=== PATIENT | male | born 1970 | race Hispanic/Latino ===

== ENCOUNTER 2016-12-21 01:15 | Emergency (ER) | payer MEDICARE ==
[2016-12-21 04:33] LABS: Anion Gap 22 mmol/L; Blood Urea Nitrogen 12 mg/dL (9-20); Calcium 9.1 mg/dL (8.4-10.2); Carbon Dioxide 23 mmol/L (22-30); Glucose 119 mg/dL (75-100); Potassium 3.8 mmol/L (3.6-5.0); Sodium 138 mmol/L (137-145)
[2016-12-21 04:42] LABS: Basophils % (Auto) 0.3 % (0.0-1.8); Eosinophils % (Auto) 0.1 % (0.0-4.3); Hematocrit 43.9 % (35.5-45.6); Hemoglobin 14.3 gm/dl (11.8-15.2); Mean Corpuscular HGB Conc 33 % (32-34); Mean Corpuscular Hemoglobin 30 pg (28-32); Mean Corpuscular Volume 91 fl (84-94); Platelet Count 347 K/mm3 (140-440); Red Blood Count 4.84 M/mm3 (3.65-5.03); Red Cell Distribution Width 14.8 % (13.2-15.2); White Blood Count 19.6 K/mm3 (4.5-11.0)
--- NOTE | 2016-12-21 06:23 | Emergency Department Report ---
ED Psych HPI - General Chief Complaint: Psych Stated Complaint: MH EVAL Time Seen by Provider: 12/21/16 06:17 Source: patient, RN notes reviewed Mode of arrival: Ambulatory Limitations: Other (patient is a poor historian. May also have a component of developmental delay.) - History of Present Illness Initial Comments: This is a 46-year-old male. He is previously unknown to me. Patient apparently has a past medical history of schizophrenia, may also have a component of bipolar, mental retardation. Does not have any family members with him. Patient presents to the ER indicating that he needs "help bad." The patient indicates he was recently discharged from another mental health facility (does not know the name) and is complaining of chronic hallucinations, and indicates that he wants to hang himself, shoot himself, or cut his own throat. He cannot describe exacerbating or relieving factors. The patient denies headache, neck pain, chest pain, abdominal pain or soreness of breath. He denies irritative and obstructive urinary symptoms. He reports that he is allergic to Haldol, acetaminophen. He reports that he takes Zyprexa, Depakote, and "a sleeping medication", but he cannot recall the names, doses, or pharmacy he gets them from. MD Complaint: suicidal ideation -: Gradual Associated Psychiatric Symptoms: auditory hallucinations History of same: Yes Quality: intermittent Improves With: none Worsens With: none If Self Harm: admits thoughts of, has plan - Related Data Home Medications Medication Instructions Recorded Confirmed Last Taken Unobtainable 12/21/16 12/21/16 Unknown Allergies Allergy/AdvReac Type Severity Reaction Status Date / Time acetaminophen [From Tylenol] Allergy Vomiting Verified 12/21/16 01:52 aspirin Allergy Vomiting Verified 12/21/16 01:52 diphenhydramine HCl Allergy Shortness Verified 12/21/16 01:52 [From Benadryl] of Breath haloperidol [From Haldol] Allergy Unknown Verified 12/21/16 01:52 haloperidol lactate Allergy Unknown Verified 12/21/16 01:52 [From Haldol] ED Review of Systems ROS: Stated complaint: MH EVAL Other details as noted in HPI Constitutional: denies: fever Eyes: denies: eye discharge ENT: denies: epistaxis Respiratory: denies: cough Cardiovascular: denies: chest pain Genitourinary: as per HPI Musculoskeletal: as per HPI Skin: as per HPI Neurological: as per HPI Psychiatric: as per HPI ED Past Medical Hx - Past Medical History Previous Medical History?: Yes Hx Psychiatric Treatment: Yes (bipolar,schizophrenia) Additional medical history: mental retardation - Surgical History Past Surgical History?: No - Social History Smoking Status: Former Smoker Substance Use Type: None - Medications Home Medications: Home Medications Medication Instructions Recorded Confirmed Last Taken Type Unobtainable 12/21/16 12/21/16 Unknown History ED Physical Exam - General Limitations: Other (developmental delay) General appearance: alert, in no apparent distress - Head Head exam: Present: atraumatic, normocephalic - Eye Eye exam: Present: normal appearance, EOMI. Absent: nystagmus - ENT ENT exam: Present: normal exam, normal orophraynx, mucous membranes moist, normal external ear exam - Neck Neck exam: Present: normal inspection, full ROM. Absent: tenderness, meningismus - Respiratory Respiratory exam: Present: normal lung sounds bilaterally. Absent: respiratory distress, wheezes, rales, rhonchi, stridor, chest wall tenderness - Cardiovascular Cardiovascular Exam: Present: regular rate, normal rhythm, normal heart sounds. Absent: bradycardia, tachycardia, irregular rhythm, systolic murmur, diastolic murmur, rubs, gallop - GI/Abdominal GI/Abdominal exam: Present: soft, normal bowel sounds. Absent: distended, tenderness, guarding, rebound, rigid, pulsatile mass - Rectal Rectal exam: Present: deferred - Extremities Exam Extremities exam: Present: normal inspection, full ROM, normal capillary refill. Absent: tenderness, pedal edema, joint swelling, calf tenderness - Back Exam Back exam: Present: normal inspection - Neurological Exam Neurological exam: Present: alert, normal gait, other (Extraocular movements intact. Tongue midline. No facial droop. Facial sensation intact to light touch in the V1, V2, V3 distribution bilaterally. 5 and 5 strength in 4 extremities.. Sensation is intact to light touch in 4 extremities.). Absent: motor sensory deficit - Psychiatric Psychiatric exam: Present: suicidal ideation - Skin Skin exam: Present: warm, dry, intact, normal color. Absent: rash ED Course Vital Signs 12/21/16 12/21/16 12/21/16 02:01 03:34 08:59 Temperature 98.2 F 98.2 F 98.2 F Pulse Rate 81 81 111 H Respiratory 18 18 16 Rate Blood Pressure 127/90 Blood Pressure 127/90 117/70 [Left] O2 Sat by Pulse 100 100 98 Oximetry 12/21/16 12/21/16 09:00 19:59 Temperature 98.6 F Pulse Rate 102 H Respiratory 16 20 Rate Blood Pressure Blood Pressure 132/82 [Left] O2 Sat by Pulse 98 98 Oximetry - Reevaluation(s) Reevaluation #1: 12/21/16 07:15 Differential diagnosis: Schizophrenia, schizoaffective disorder, bipolar disorder, developmental delay, malingering, medical clearance for psychiatric admission Assessment and plan: 46-year-old male with suicidal thoughts, chronic hallucinations. He is afebrile with reassuring vital signs. He is alert to name, knows that he is in the hospital. He walks with a steady gait. His leukocytosis is appreciated, however his physical exam is unremarkable, urinalysis is unremarkable, pulmonary exam is clear, given soft belly, lack of neck pain, lack of neck stiffness, lack of fever, I think it is very unlikely that the patient has an invasive/serious bacterial infection. More likely, his leukocytosis is not medically relevant, as he has no corroborating symptoms that would suggest infection at this time. He will be placed on a 1013 hold, we will attempt to reconcile his medications, and we will contact psychiatry to arrange psychiatric consultations/placement was the patient has been deemed medically suitable. Reevaluation #2: 12/21/16 08:30 Laboratory studies are reviewed and are unremarkable. Minimally elevated creatinine kinase is appreciated. This does not warrant IV fluids at this time. It will decrease with oral hydration. At this point in time, I see no immediate medical contraindication to psychiatric admission/evaluation. The crisis counselor is informed. Reevaluation #3: 12/21/16 15:16 patient is seen and evaluated by Dr. Gaviria of psychiatry. As per his documentation, the patient was recently discharged from an acute psychiatric unit. He was at [facility] for the past 2 weeks and recently discharged. His payee was recently changed from his mother to a payee [employer], who set up personal skilled nursing placement. As per psychiatry "at this time, he is here to obtain a new residence and would like some support in this matter. He is not an acute danger to himself. He is not threatening to harm himself. He notes that if he were discharged, he would go to another facility would find him a place to live. He actually notes wanting to simply live in the ER for a while. He doesn't want to return home to his mother at this time." As per recommendation of psychiatry, patient does not require involuntary commitment or psychiatric hospitalization at this time. They recommend that 1013 be discontinued. At this point in time, patient does not require medical admission or inpatient psychiatric admission. As per verbal report from Dr. Gaviria, the patient had a prolonged psychiatric hospitalization mostly for social reasons. The patient did not want to be with his mother. The patient was placed in a personal skilled nursing. The patient does not like the personal skilled nursing. The patient does exhibit appropriate decision making capacity, and it is my opinion Dr. Gaviria's opinion that the patient is able to care for himself at this time. The patient is instructed that he may follow-up and return to the personal skilled nursing that was previously arranged for him, or that he can go back to his mother' s, or that he can go to a homeless fpc. The geriatric case manager was contacted to provide the patient with referrals for local shelters. 12/21/16 15:34 ED Medical Decision Making - Lab Data Result diagrams: 12/21/16 04:02 12/21/16 04:02 Vital Signs 12/21/16 12/21/16 02:01 03:34 Temperature 98.2 F 98.2 F Pulse Rate 81 81 Respiratory 18 18 Rate Blood Pressure 127/90 Blood Pressure 127/90 [Left] O2 Sat by Pulse 100 100 Oximetry Lab Results 12/21/16 12/21/16 12/21/16 Range/Units 04:02 04:02 04:02 WBC 19.6 H (4.5-11.0) K/mm3 RBC 4.84 (3.65-5.03) M/mm3 Hgb 14.3 (11.8-15.2) gm/dl Hct 43.9 (35.5-45.6) % MCV 91 (84-94) fl MCH 30 (28-32) pg MCHC 33 (32-34) % RDW 14.8 (13.2-15.2) % Plt Count 347 (140-440) K/mm3 Lymph % (Auto) 9.7 L (13.4-35.0) % [place] % (Auto) 6.1 (0.0-7.3) % Eos % (Auto) 0.1 (0.0-4.3) % Baso % (Auto) 0.3 (0.0-1.8) % Lymph # 1.9 (1.2-5.4) K/mm3 [place] # 1.2 H (0.0-0.8) K/mm3 Eos # 0.0 (0.0-0.4) K/mm3 Baso # 0.1 (0.0-0.1) K/mm3 Seg Neutrophils % 83.8 H (40.0-70.0) % Seg Neutrophils # 16.4 H (1.8-7.7) K/mm3 Sodium 138 (137-145) mmol/L Potassium 3.8 (3.6-5.0) mmol/L Chloride 97.0 L (98-107) mmol/L Carbon Dioxide 23 (22-30) mmol/L Anion Gap 22 mmol/L BUN 12 (9-20) mg/dL Creatinine 0.6 L (0.8-1.5) mg/dL Estimated GFR > 60 ml/min BUN/Creatinine Ratio 20.00 % Glucose 119 H (75-100) mg/dL Calcium 9.1 (8.4-10.2) mg/dL Urine Color (Yellow) Urine Turbidity (Clear) Urine pH (5.0-7.0) Ur Specific [place] (1.003-1.030) Urine Protein (Negative) mg/dL Urine Glucose (UA) (Negative) mg/dL Urine Ketones (Negative) mg/dL Urine Blood (Negative) Urine Nitrite (Negative) Urine Bilirubin (Negative) Urine Ictotest (Negative) Urine Urobilinogen (<2.0) mg/dL Ur Leukocyte Esterase (Negative) Urine WBC (Auto) (0.0-6.0) /HPF Urine RBC (Auto) (0.0-6.0) /HPF U Epithel Cells (Auto) (0-13.0) /HPF Hyaline Casts /LPF Urine Mucus /HPF Urine Opiates Screen Urine Methadone Screen Ur Barbiturates Screen Ur Phencyclidine Scrn Ur Amphetamines Screen U Benzodiazepines Scrn Urine Cocaine Screen U Marijuana (THC) Screen Drugs of Abuse Note Plasma/Serum Alcohol < 0.01 (0-0.07) gm% 12/21/16 12/21/16 Range/Units 04:08 04:08 WBC (4.5-11.0) K/mm3 RBC (3.65-5.03) M/mm3 Hgb (11.8-15.2) gm/dl Hct (35.5-45.6) % MCV (84-94) fl MCH (28-32) pg MCHC (32-34) % RDW (13.2-15.2) % Plt Count (140-440) K/mm3 Lymph % (Auto) (13.4-35.0) % [place] % (Auto) (0.0-7.3) % Eos % (Auto) (0.0-4.3) % Baso % (Auto) (0.0-1.8) % Lymph # (1.2-5.4) K/mm3 [place] # (0.0-0.8) K/mm3 Eos # (0.0-0.4) K/mm3 Baso # (0.0-0.1) K/mm3 Seg Neutrophils % (40.0-70.0) % Seg Neutrophils # (1.8-7.7) K/mm3 Sodium (137-145) mmol/L Potassium (3.6-5.0) mmol/L Chloride (98-107) mmol/L Carbon Dioxide (22-30) mmol/L Anion Gap mmol/L BUN (9-20) mg/dL Creatinine (0.8-1.5) mg/dL Estimated GFR ml/min BUN/Creatinine Ratio % Glucose (75-100) mg/dL Calcium (8.4-10.2) mg/dL Urine Color Yellow (Yellow) Urine Turbidity Clear (Clear) Urine pH 6.0 (5.0-7.0) Ur Specific [place] 1.030 (1.003-1.030) Urine Protein 30 mg/dl (Negative) mg/dL Urine Glucose (UA) Neg (Negative) mg/dL Urine Ketones Tr (Negative) mg/dL Urine Blood Neg (Negative) Urine Nitrite Neg (Negative) Urine Bilirubin Neg (Negative) Urine Ictotest Negative (Negative) Urine Urobilinogen 2.0 (<2.0) mg/dL Ur Leukocyte Esterase Neg (Negative) Urine WBC (Auto) 1.0 (0.0-6.0) /HPF Urine RBC (Auto) 5.0 (0.0-6.0) /HPF U Epithel Cells (Auto) < 1.0 (0-13.0) /HPF Hyaline Casts 1 /LPF Urine Mucus 2+ /HPF Urine Opiates Screen Presumptive negative Urine Methadone Screen Presumptive negative Ur Barbiturates Screen Presumptive negative Ur Phencyclidine Scrn Presumptive negative Ur Amphetamines Screen Presumptive negative U Benzodiazepines Scrn Presumptive negative Urine Cocaine Screen Presumptive negative U Marijuana (THC) Screen Presumptive negative Drugs of Abuse Note Disclamer Plasma/Serum Alcohol (0-0.07) gm% Critical care attestation.: If time is entered above; I have spent that time in minutes in the direct care of this critically ill patient, excluding procedure time. ED Disposition Clinical Impression: Mood disorder Disposition: DISCHARGED TO HOME OR SELFCARE Is pt being admited?: No Does the pt Need Aspirin: No Condition: Good Additional Instructions: Continue current outpatient medications. Follow-up with a primary care doctor or medical professional within the next week to [address] Wayne is a local primary care doctor. If you are unhappy with the personal skilled nursing that has been set up for you, you may go back to her mother's house, or you may follow up at any of the local homeless shelters. Please return to the ER right away with new, worsening or different symptoms. Referrals: PRIMARY MD KARISHMA [Primary Care Provider] - 3-5 Days MARA HAIR MD [Staff Physician] - 3-5 Days [facility] [Provider Group] - 3-5 Days [facility] [Outside] - 3-5 Days
[2016-12-21 06:43] LABS: Urine Drugs of Abuse Note Disclamer
[2016-12-21 06:54] LABS: Bilirubin,Urine NEG (Negative); Blood,Urine NEG (Negative); Ketones,Urine TR mg/dL (Negative); Leukocyte Esterase,Urine NEG (Negative); Mucus,Urine 2+ /HPF; Nitrite,Urine NEG (Negative)
[2016-12-21 07:23] LABS: Lithium 0.1 mmol/L (0.0-1.2)
[2016-12-21 07:24] LABS: Salicylate < 0.3 mg/dL (2.8-20.0)
--- NOTE | 2016-12-21 14:36 | Consultation ---
History of Present Illness - Reason for Consult Consult date: 12/21/16 Reason for consult: evaluate need to place on a [facility] psychiatric unit or not - Chief Complaint Chief complaint: I don't like my personal retirement - History of Present Psychiatric Illness This is a 46 year old undomiciled male with a developmental delay and comorbid mood disorder who presents today because he don't like the personal retirement he was recently placed at after discharge form a recent hospitalization at an acute psychiatric unit. He was at [facility] for the past 2 weeks and recently discharged. His payee was recently changed from his mother to a payee [employer], who set up the personal retirement placement. At this time, he is here to obtain a new residence and would like some support with this matter. He is not an acute danger to himself. He is not threatening to harm himself. He notes that if he were discharged, he would go to another facility who would find him a place to live. He actually notes wanting to simply live in the ER for a while. He doesn't want to return home to his mother at this time. Today, during interview, the patient denies suicidality, homicidality or further desire to harm self or others. The patient notes that their mood is: Good. Affect is good. Patient relates sleep is: Good. Energy levels are: Good. Appetite is: Good. Anxiety: increased about not having appropriate housing Appearance: Patient appears appropriate for stated age and in no acute distress. Behavior: Pleasant Cooperation: Full Insight/Judgment: Good Level of cognition: Appropriate Level of consciousness: Appropriate Knowledge: Good Speech: Regular rate and volume. No hyperverbal nor hypoverbal speech. Thought processes: Linear and goal oriented. Thought content: No Paranoia, delusions or overt psychosis. Perceptions: Patient denies auditory or visual hallucinations. Patient denies auditory or visual hallucinations, paranoia, delusions or overt psychosis. Medications and Allergies Allergies Allergy/AdvReac Type Severity Reaction Status Date / Time acetaminophen [From Tylenol] Allergy Vomiting Verified 12/21/16 01:52 aspirin Allergy Vomiting Verified 12/21/16 01:52 diphenhydramine HCl Allergy Shortness Verified 12/21/16 01:52 [From Benadryl] of Breath haloperidol [From Haldol] Allergy Unknown Verified 12/21/16 01:52 haloperidol lactate Allergy Unknown Verified 12/21/16 01:52 [From [facility]] Home Medications Medication Instructions Recorded Confirmed Last Taken Type Unobtainable 12/21/16 12/21/16 Unknown History Mental Status Exam - Vital signs Last Vital Signs Temp 98.2 F 12/21/16 08:59 Pulse 111 H 12/21/16 08:59 Resp 16 12/21/16 09:00 BP 117/70 12/21/16 08:59 Pulse Ox 98 12/21/16 09:00 - Exam Orientation: time Results Result Diagrams: 12/21/16 04:02 12/21/16 04:02 Abnormal lab results 12/21/16 12/21/16 12/21/16 Range/Units 04:02 04:02 04:02 WBC 19.6 H (4.5-11.0) K/mm3 Lymph % (Auto) 9.7 L (13.4-35.0) % Sebastian # 1.2 H (0.0-0.8) K/mm3 Seg Neutrophils % 83.8 H (40.0-70.0) % Seg Neutrophils # 16.4 H (1.8-7.7) K/mm3 Chloride 97.0 L (98-107) mmol/L Creatinine 0.6 L (0.8-1.5) mg/dL Glucose 119 H (75-100) mg/dL Total Creatine Kinase 498 H (55-170) units/L Salicylates (2.8-20.0) mg/dL Valproic Acid (50-100) ug/mL 12/21/16 Range/Units 04:02 WBC (4.5-11.0) K/mm3 Lymph % (Auto) (13.4-35.0) % Sebastian # (0.0-0.8) K/mm3 Seg Neutrophils % (40.0-70.0) % Seg Neutrophils # (1.8-7.7) K/mm3 Chloride (98-107) mmol/L Creatinine (0.8-1.5) mg/dL Glucose (75-100) mg/dL Total Creatine Kinase (55-170) units/L Salicylates < 0.3 L (2.8-20.0) mg/dL Valproic Acid 42.0 L (50-100) ug/mL All other labs normal. Assessment and Plan Assessment and plan: This patient requires help with finding appropriate housing. He has recently changed his payee, who found him a personal retirement that he did not find suitable. If he were supported with finding a new residence, he would gladly go there. He doesn't need to be on a 1013 or transferred to an acute care facility for psychiatric care at this time.
[2016-12-21 20:02] VITALS: BP 132/82
[2016-12-21] MEDS ORDERED: ZOFRAN ODT ONE (20:07)
[2016-12-21] MEDS ORDERED: ZOFRAN ODT PO ONE (20:15)
--- NOTE | 2016-12-22 15:27 | Event Note ---
Date: 12/22/16 No recent events. Vital signs unremarkable. Currently waiting pickup from patient's mother. Vital Signs 12/21/16 12/21/16 12/21/16 02:01 03:34 08:59 Temperature 98.2 F 98.2 F 98.2 F Pulse Rate 81 81 111 H Respiratory 18 18 16 Rate Blood Pressure 127/90 Blood Pressure 127/90 117/70 [Left] O2 Sat by Pulse 100 100 98 Oximetry 12/21/16 12/21/16 09:00 19:59 Temperature 98.6 F Pulse Rate 102 H Respiratory 16 20 Rate Blood Pressure Blood Pressure 132/82 [Left] O2 Sat by Pulse 98 98 Oximetry
== END 2016-12-22 16:23 | disposition home or self-care (01) ==
LOC: EEVIPCON 01:15 → ED 01:15
DX: F39 Unspecified mood [affective] disorder (principal); F20.9 Schizophrenia, unspecified; F31.9 Bipolar disorder, unspecified; Z87.891 Personal history of nicotine dependence; Z88.6 Allergy status to analgesic agent; Z88.8 Allergy status to other drugs, medicaments and biological substances
CPT/HCPCS: 36415; 51701; 80048; 80164; 80178; 80307; 81001; 82550; 85025; 99284; G0480; 80320; Q0162